=== PATIENT | female | born 1985 | race Caucasian/White ===

== ENCOUNTER → 2023-11-09 09:33 | Outpatient (REF) | payer BC, SELFPAY | LOC: MRI 3T 09:33 | PROVIDERS: ATTENDING PHYSICIAN Obstetrics & Gynecology; FAMILY PHYSICIAN Family Medicine | DX: N80.A0 Endometriosis of bladder, unspecified depth (principal); R10.2 Pelvic and perineal pain | CPT/HCPCS: 72197; A9575 ==

== ENCOUNTER → 2023-11-22 11:13 | Outpatient (REF) | payer BC, SELFPAY | LOC: WDC 11:13 | PROVIDERS: ATTENDING PHYSICIAN Obstetrics & Gynecology; FAMILY PHYSICIAN Family Medicine | DX: Z12.31 Encounter for screening mammogram for malignant neoplasm of breast (principal) | CPT/HCPCS: 77063; 77067 ==

== ENCOUNTER 2024-01-02 06:05 | Day surgery (SDC) | payer BC, SELFPAY ==
--- NOTE | 2023-12-21 11:31 | CM ---
Patient is scheduled for surgery with Dr. Chavis on 01/02/24. Spoke with patient prior to surgery via telephone. Introduced role of case management. Patient reports that she lives with her and 5 year old daughter in a two story home. There
are two steps to enter and a flight of steps to the second floor. She functions independently and does not use any DME. She has never had VN services. She has a prescription plan and uses [facility] in [place].
PCP is Tacho Turner.
Patient states that she will have support from her when she goes home. Her mother and sister also live close by and can also assist if needed. She has no discharge planning concerns at this time.
[2023-12-27 09:09] LABS: Hematocrit 39.6 % (37.0-47.0); Hemoglobin 13.4 g/dL (12.0-16.0); Mean Corp Hgb Conc. 33.8 g/dL (33.0-37.0); Mean Corpuscular Hgb 31.8 pg (27.0-31.0); Mean Corpuscular Volume 94.1 fL (81.0-99.0); Mean Platelet Volume 10.6 fL (7.4-10.4); Platelet Count 231 10^3/uL (130-400); Red Blood Cell Count 4.21 10^6/uL (4.20-5.40); Red Cell Dist. Width 11.7 % (11.5-14.5); White Blood Cell Count 7.3 10^3/uL (4.8-10.8)
[2023-12-27 09:57] LABS: Blood Urea Nitrogen 14 mg/dl (7-17); Calcium 9.5 mg/dl (8.4-10.2); Carbon Dioxide 24 mmol/L (22-30); Chloride 102 mmol/L (98-107); Estimated Creatinine Clearance 89 ml/min; Glucose 93 mg/dl (70-99); Potassium 4.2 mmol/L (3.5-5.1); Sodium 135 mmol/L (135-145); eGFR > 60.00
--- NOTE | 2023-12-27 13:25 | PTCARENOTE ---
Abnormal EKG ok per Dr. Maldonado.
[2024-01-02] VITALS (19 sets, daily range): BP systolic 97–119; BP diastolic 57–71
[2024-01-02] MEDS: Pyridium 200 MG PO (06:35)
[2024-01-02] MEDS: NORMOSOL-R 1000 IV ×3 (06:45→23:31)
[2024-01-02] MEDS: DILAUDID 0.5 MG IV ×3 (12:01→13:32)
--- NOTE | 2024-01-02 12:09 | W.IMMPOSTOP ---
Surgical Immed Post Op Note
-
Primary Surgeon: Katifer
Assisting Surgeon:
Pre-op Diagnosis: Endometriosis
Post-op Diagnosis: same
Procedure Performed: Cystoscopy, ureteral stents, robotic assisted laparoscopic partial cystectomy
Anesthesia Type: general
Specimen / Cultures: Bladder endometrioma
Estimated Blood Loss: 5cc
Complications: none
Operative Findings: negative leak of 2 layer bladder closure
[2024-01-02] MEDS: TORADOL 15 MG IV ×3 (12:25→23:40)
--- NOTE | 2024-01-02 16:17 | PTCARENOTE ---
Received patient from PACU via bed around 1520 in stable condition. VS stable. 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 Osborne draining bloody urine. Lois-pad in place. Uretal stent x 1. Patients left eye red and irritated. 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
informed anesthesia. Ointment ordered. Family and patient oriented to room. Call hernandez in reach.
[2024-01-02] MEDS: ERYTHROMYCIN 0.5% OPHTHALMIC OINTMENT 1 APPLIC OPHTH ×2 (17:02→21:15)
[2024-01-02] MEDS: LOVENOX 40 MG SC (17:02)
[2024-01-02] MEDS: COLACE 100 MG PO (20:06)
[2024-01-02] MEDS: VALIUM INJECTION 2 MG IV (21:14)
[2024-01-03] MEDS: ROXICODONE 5 MG PO ×2 (01:24→08:55)
[2024-01-03] MEDS: MYLICON 80 MG PO ×2 (01:28→08:14)
[2024-01-03 03:00] VITALS: BP 103/67
[2024-01-03 05:42] LABS: Mean Corp Hgb Conc. 34.4 g/dL (33.0-37.0); Mean Corpuscular Hgb 31.8 pg (27.0-31.0); Mean Corpuscular Volume 92.5 fL (81.0-99.0); Mean Platelet Volume 10.4 fL (7.4-10.4); Platelet Count 173 10^3/uL (130-400); Red Blood Cell Count 3.46 10^6/uL (4.20-5.40); Red Cell Dist. Width 11.4 % (11.5-14.5); White Blood Cell Count 10.8 10^3/uL (4.8-10.8)
--- NOTE | 2024-01-03 05:45 | PTCARENOTE ---
Vaginal packing removed per orders without difficulty. No vaginal bleeding noted to sneha pads this shift.
[2024-01-03] MEDS: TORADOL 15 MG IV (05:50)
[2024-01-03] MEDS: SYNTHROID 112 MCG PO (06:01)
[2024-01-03 06:09] LABS: Blood Urea Nitrogen 9 mg/dl (7-17); Carbon Dioxide 24 mmol/L (22-30); Chloride 106 mmol/L (98-107); Estimated Creatinine Clearance 89 ml/min; Potassium 4.4 mmol/L (3.5-5.1); Sodium 133 mmol/L (135-145)
[2024-01-03] MEDS: NORMOSOL-R IV ×2 (06:26→11:44)
[2024-01-03 07:25] VITALS: BP 92/62
--- NOTE | 2024-01-03 07:37 | W.PN.GYN ---
Today's Communication / Plan
-
1. d/c home today
2. stent removed
Physician Note
-
Assessment and Plan:
38 yo woman POD 1 s/p robotic total hysterectomy, bilateral salpingectomy, left ovarian cystectomy, excision of endometriosis and removal of endometrioma of the bladder and repair of bladder: patient doing well today and meeting postoperative
milestones.
1. Postoperative Care:
-Regular diet
-Hep lock IV
-Rodriguez to remain in place until next , stent removed
-CBC: WNL
-BMP: WNL
-UOP: Adequate
-PO pain medication
-DVT ppx: lovenox, scds, ambulation
2. Eye Care
-continue ophthalmic ointment
3. Dispo
-d/c home today
Subjective:
No acute distress, pain well controlled, tolerating diet, +passing flatus, denies fevers/chills, nausea, vomitting, chest pain, sob, leg pain
Objective:
Intake and Output
01/01/24 01/02/24 01/03/24 01/04/24
06:59 06:59 06:59 06:59
Intake Total 3345 / 3345
Output Total 3225 / 3225
Balance 120 / 120
Intake:
Oral fluids 1070 / 1070
IV fluids (Total) 2275 / 2275
Normosal 400 / 400
Output:
Urine, Rodriguez 3225 / 3225
Vital Signs
Temp Pulse Resp BP Pulse Ox
98.9 F 63 16 103/67 97
01/03/24 03:00 01/03/24 03:00 01/03/24 03:00 01/03/24 03:00 01/03/24 03:00
Lab Results
01/03/24 05:10
01/03/24 05:10
Exam
Abdomen: soft, nontender, nondistended
Incision: clean, dry, intact
: vaginal spotting, rodriugez in place
[2024-01-03] MEDS: ERYTHROMYCIN 0.5% OPHTHALMIC OINTMENT 1 APPLIC OPHTH (08:10)
[2024-01-03] MEDS: COLACE 100 MG PO (08:10)
--- NOTE | 2024-01-03 08:59 | CM ---
Alert awake oriented patient who lives with Tripp in a 2 story home with 2 step to enter and 14 steps to bed room . She is independent in driving and all activities of daily living.Offered VN she declined. She has a Osborne till appt
and said she can care for Osborne at home.
No SNF/VN hx
Pharmacy [facility] [place]
PCP Dr Heart
PLAN Home no needs
[2024-01-03 12:13] VITALS: BP 105/74
== END 2024-01-03 13:47 | disposition home or self-care (01) ==
LOC: SDS 06:05
PROVIDERS: ATTENDING PHYSICIAN Obstetrics & Gynecology; FAMILY PHYSICIAN Family Medicine; OTHER PHYSICIAN Obstetrics & Gynecology
DX: N80.00 Endometriosis of the uterus, unspecified (principal); N80 Endometriosis; N83.12 Corpus luteum cyst of left ovary; G89.29 Other chronic pain
CPT/HCPCS: 58571; 58662; 52332; 51999; 88305; 88307; 36415; 80048; 80051; 82565; 84520; 85027; 86850; 86900; 86901; 88341; 88342; 93005; C1729

== ENCOUNTER → 2024-11-25 13:09 | Outpatient (REF) | payer BC, SELFPAY | LOC: WDC 13:09 | PROVIDERS: ATTENDING PHYSICIAN Obstetrics & Gynecology | DX: Z12.31 Encounter for screening mammogram for malignant neoplasm of breast (principal) | CPT/HCPCS: 77063; 77067 ==